=== PATIENT | female | born 1995 | race Two or more races ===

== ENCOUNTER 2023-09-20 11:32 | Emergency (ER) | payer OTHER ==
[~2023-09-20] VITALS: Ht 160 cm; Wt 61.2 kg
[2023-09-20 13:44] LABS: HEMATOCRIT 32.2 % (36.0-45.00); HEMOGLOBIN 11.2 g/dL (12.0-15.00); MEAN CELL VOLUME 85.6 fL (80.00-100.00); MEAN CORPUSCULAR HEMOGLOBIN 29.9 pg (27.00-32.0); MEAN CORPUSCULAR HGB CONC 34.9 g/dl (32.0-36.0); PLATELET COUNT 290 K/uL (150-450); RED BLOOD COUNT 3.76 M/uL (4.00-6.00); RED CELL DISTRIBUTION WIDTH 13.4 % (11.5-14.5)
[2023-09-20 14:11] LABS: INR 1.01; PARTIAL THROMBOPLASTIN TIME 27.3 SECONDS (22.0-34.0); PROTHROMBIN TIME 10.6 SECONDS (9.0-11.5)
[2023-09-20 15:13] LABS: CALCIUM 9.2 mg/dL (8.5-10.1); CREATININE SERUM 0.71 mg/dL (0.55-1.02); GFR 98.02; POTASSIUM 3.77 mEq/L (3.5-5.1)
[2023-09-20 17:08] LABS: PH,URINE 7.5 (5.0-8.0); URINE APPEARANCE Clear; URINE BILIRRUBIN Negative (NEGATIVE); URINE BLOOD Large; URINE COLOR Orange; URINE GLUCOSE Negative (NEGATIVE); URINE LEUKOCYTE Trace; URINE NITRATE Negative; URINE PROTEIN 30 (NEGATIVE)
[2023-09-20 17:12] LABS: URINE BACTERIA 89.4 uL (0.0-1933); URINE EPITHELIAL CELLS 4.9 uL (0.0-38.8); URINE RBC 2203.2 uL (0.0-20.8); URINE WBC 5.6 uL (0.0-23.2)
== END 2023-09-21 04:46 | disposition home or self-care (01) ==
LOC: ER 11:33
PROVIDERS: General Practice
DX: O20.8 Other hemorrhage in early pregnancy (principal); Z3A.22 22 weeks gestation of pregnancy; R10.2 Pelvic and perineal pain; Z20.822 Contact with and (suspected) exposure to COVID-19